=== PATIENT | male | born 1990 | race Caucasian/White ===

== ENCOUNTER 2025-02-15 19:22 | Emergency (ER) | payer BC, MEDICAID ==
[~2025-02-15] VITALS: Ht 190.5 cm; Wt 91.0 kg
[2025-02-15 19:27] VITALS: TEMP 36.7; O2SAT 98
[2025-02-15 23:40] VITALS: BP 96/66; PULSE 117; RESP 18; O2SAT 100
[2025-02-15] MEDS: ONDANSETRON 4MG ODT PO ONE (23:46)
== END 2025-02-16 00:58 | disposition home or self-care (01) ==
LOC: ER 19:22
DX: T83.098A Other mechanical complication of other urinary catheter, initial encounter (principal); R33.9 Retention of urine, unspecified; G82.20 Paraplegia, unspecified; Y92.89 Other specified places as the place of occurrence of the external cause
CPT/HCPCS: 51702; 99284; Q0162; Z7610 ×4; A4606